=== PATIENT | female | born 1950 | race Caucasian/White ===

== ENCOUNTER → 2017-03-30 | Outpatient (CLI) | payer OTHER ==
[~2017-03-30] MED LIST: ALENDRONATE SOD70 M1 PO; AMOXICILLIN PO; CLARITIN10 MG PO; CYANOCOBAL1000 MCG/M IM; CYMBALTA PO; DARVOCET-N 1001 TAB PO; EYE DROP; FIORINAL CAPSUL1 CAP PO; FLEXERIL10 MG PO; FLONASE16 GM; GLIMEPIRIDE2 MG PO; HYDROCODON-ACE1 EAC5 PO; IBUPROFEN800 MG; KCL PO; LISINOPRIL10 MG PO; METFORMIN HCL500 M1; METFORMIN HCL500 M1 PO; NEURONTIN800 MG PO; NEXIUM PO; NORCO 7.5-3251 EACH; PAROXETINE HCL20 M1 PO; PREDNISONE PO; PRINIVIL10 MG; TIMOPTIC 0.5% OP5 M1 OD; TORADOL10 MG PO; TRAMADOL HCL50 M2; VOLTAREN75 MG PO; XARELTO10 MG PO; ZYRTEC PO; [UNRECOGNIZED DRUG - OTHER]
--- NOTE | ~2017-03-30 | HM ---
Unit #: [id number] #: [id number] Patient: ADA GOODWIN [id number] [address] [address] [id number] O MR#: [id number] NAME: ADA GOODWIN : 1950 SEX: F STUDY DATE/TIME: 03/30/2017 UNIT: CE ROOM: STUDY DESCRIPTION: Attending Physician: Juancarlos Jimenez M.D. Referring Physician: Juancarlos Jimenez M.D. Primary Care Physician: Juancarlos Jimenez M.D. CARDIOLOGY REPORT EXAM 24-hour Holter monitor. DATE APPLIED 03/30/2017 DATE SCANNED 04/02/2017 READ BY [facility] [place]. ORDERED BY Juancarlos Jimenez M.D. REASON FOR STUDY Sinus tachycardia. FINDINGS Underlying rhythm is sinus rhythm with an average heart rate of 97 beats per minute, minimum heart rate of 69 beats per minute and a maximum heart rate of 134 beats per minute. The minimum heart rate of 69 beats per minute is noted at 3:37 p.m. The maximum heart rate of 134 beats per minute is noted at 11:12 a.m. The patient had a 1.07 second pause noted at 3:50 a.m. Patient had 251 single multifocal premature ventricular complex and 117 single premature atrial complex noted. Patient had one atrial couplet noted. Patient did not record any symptoms. CONCLUSION 1. Underlying rhythm is normal sinus rhythm with an average heart rate of 97 beats per minute, minimum heart rate of 69 beats per minute, and a maximum heart rate of 134 beats per minute. 2. No sustained atrial or ventricular arrhythmias noted. 3. No significant pauses noted. 4. Patient had occasional single multifocal premature ventricular complex and occasional single premature atrial complex noted. 5. It must be noted that the patient's average heart rate in the 24 hours was elevated at 97 beats per minute. 6. Patient did not record any symptoms. Unit #: [id number] #: [id number] Patient: ADA GOODWIN Dictated by..Rafiq Garcia TD: 04/02/2017 11:48 JOB #: [id number] CARDIOLOGY REPORT Page 1 of 1 X Keshia Simpson MD <ELECTRONICALLY SIGNED> 06/13/17 1429 HOLTER MONITOR REPORT
== END | disposition home or self-care (01) ==
LOC: CEKG 09:30
DX: R00.0 Tachycardia, unspecified (principal)
CPT/HCPCS: 93225; 93226

== ENCOUNTER → 2017-05-06 | Day surgery (SDC) | payer OTHER ==
--- NOTE | ~2017-05-06 | OR ---
Unit #: [id number] #: [id number] Patient: ADA GOODWIN [id number] [address] [address] [id number] O MR#: [id number] NAME: ADA GOODWIN ROOM: Date of Procedure: 05/06/2017 Admission Date: 05/06/2017 Surgeon: Tyler Brown M.D. : 1950 Attending Physician: Tyler Brown M.D. Primary Care Physician: Myles Jimenez M.D. OPERATIVE REPORT JOB NOTE: CC: DR. MYLES JIMENEZ PREOPERATIVE DIAGNOSES Dyspepsia and hematochezia. PROCEDURES PERFORMED Upper gastrointestinal endoscopy and biopsy as well as colonoscopy with polypectomy. POSTOPERATIVE DIAGNOSES For upper endoscopy: 1. Completely normal examination up to third part of the duodenum. Biopsies obtained from the antrum for CLOtest. For colonoscopy: 1. The patient had mild sigmoid and descending colon diverticulosis. 2. There were small internal hemorrhoids, which were felt to be not large enough to require band ligation. 3. Single sessile polyp in the cecum. This was about a centimeter in size and was removed using snare cautery polypectomy. 4. Rest of the examination up to cecum was normal. The quality of the prep was good. RECOMMENDATIONS The patient will continue on Nexium 40 mg p.o. daily. She will be followed up in the office in 8 to 10 weeks' time. The results of polyp histology will be communicated to the patient. SEDATION USED MAC. DESCRIPTION OF PROCEDURE Following detailed explanation of potential risks and complications of an upper endoscopy and a colonoscopy, namely perforation, bleeding, and complications related to sedation, the patient was brought to GI lab and laid in the left lateral decubitus position. Lubricated tip of the Olympus video upper endoscope was passed through the bite block into the proximal esophagus under direct vision. The entire esophageal mucosa was examined and appeared normal. Z-line was nicely demarcated, there being no esophagitis or hiatus hernia. The scope was then advanced into the gastric cavity and the latter was insufflated. Mucosa of the fundus, body, and antrum examined and appeared unremarkable. Pylorus was intubated with visualization of the normal duodenal bulb and second and Unit #: [id number] #: [id number] Patient: ADA GOODWIN third part of the duodenum. Upon withdrawal and retroflexion, incisura, cardia, and greater curve examined and no additional findings noted. A biopsy obtained from the antrum for CLOtest. The scope was then withdrawn in the distal esophagus. Entire esophageal mucosa was examined all the way up to pharynx. No additional findings noted. The examination table was then turned by 180 degrees and the patient positioned for a colonoscopy. A digital rectal examination was performed, which was normal. Lubricated tip of the Olympus video colonoscope was inserted through the anus and advanced under direct vision. The scope was advanced and passed up to sigmoid into descending colon. Multiple small to medium-sized diverticula were noted in this area. The scope tip was then navigated all the way up to cecum with visualization of the ileocecal valve and the appendiceal orifice. Preparation was good with good visualization and photodocumentation was obtained. Last several inches of the terminal ileum also visualized after intubation of the ileocecal valve and appeared normal. Successive segments of the colonic mucosa were examined upon withdrawal. A 1 cm sessile polyp was noted in the cecum. This was removed using snare cautery polypectomy. The polyp was retrieved and sent for histology. No additional polyps were noted. The patient had scant diverticula seen in the left colon as seen earlier. In addition, a small internal hemorrhoids also noted at the anal verge. The patient also had external skin tags in the anterior aspect of the anal orifice in continuation with the perineum. The scope was then withdrawn. The patient returned to the recovery area. She tolerated the procedure without any postprocedure complications. Dictated by... Rafiq Ovalle/keith TD: 05/06/2017 23:37 JOB #: [id number] CC: Linette Torre M.D. OPERATIVE REPORT Page 1 of 1 X Tyler Brown MD X PROCEDURE OPERATIVE NOTE
== END | disposition home or self-care (01) ==
LOC: COPS 09:49
DX: D12.0 Benign neoplasm of cecum (principal); R10.13 Epigastric pain; K57.30 Diverticulosis of large intestine without perforation or abscess without bleeding; K64.8 Other hemorrhoids; E11.9 Type 2 diabetes mellitus without complications; I10 Essential (primary) hypertension; K21.9 Gastro-esophageal reflux disease without esophagitis; F17.210 Nicotine dependence, cigarettes, uncomplicated; Z88.2 Allergy status to sulfonamides; Z88.1 Allergy status to other antibiotic agents; Z79.01 Long term (current) use of anticoagulants; Z79.84 Long term (current) use of oral hypoglycemic drugs; Z79.891 Long term (current) use of opiate analgesic; Z79.899 Other long term (current) drug therapy; Z90.49 Acquired absence of other specified parts of digestive tract; Z98.890 Other specified postprocedural states
CPT/HCPCS: 82947; 87077; 88305; J2250

== ENCOUNTER → 2017-05-22 | Outpatient (CLI) | payer OTHER ==
--- NOTE | ~2017-05-22 | US85 ---
[facility] A Service of [facility] RADIOLOGY TEXT RESULTS PATIENT: ADA GOODWIN LOCATION: [facility] : [birth year] UNIT #: [id number] AGE: [address]: MYLES JIMENEZ MD (INT MED) SEX: F ORDER DR: [id number] [address] [address] [id number] O MR#: [id number] Acc #: [id number] NAME: ADA GOODWIN : 1950 SEX: F STUDY DATE/TIME: 05/22/2017 9:14 UNIT: [facility] ROOM: STUDY DESCRIPTION: [facility] Attending Physician: Myles Jimenez M.D. Referring Physician: Myles Jimenez M.D. Ordering Physician: [facility]les [employer] Managerbryce Jimenez Primary Care Physician: Myles Jimenez M.D. MEDICAL IMAGING REPORT This report is preliminary unless electronic signature is present. EXAM Right lower extremity venous duplex, 05/22/2017. HISTORY Right lower extremity edema and pain for 2 weeks with history of previous DVT October 2016. Evaluate for deep vein thrombosis. TECHNIQUE Venous ultrasound examination of the right lower extremity was performed using grayscale, spectral Doppler and color flow Doppler imaging. FINDINGS The examination is negative. There is no evidence of right lower extremity deep venous thrombus from the groin to the lower calf. Visualized greater saphenous vein is also patent. IMPRESSION Negative examination. No evidence of right lower extremity deep venous thrombosis. Dictated by... Rafiq Gibson M.D. THIS IS AN ELECTRONICALLY VERIFIED REPORT Rafiq Gibson M.D. at 05/22/2017 6:25 PM KRT/kitty TD: 05/22/2017 17:21 [facility] A Service [facility] RADIOLOGY TEXT RESULTS PATIENT: ADA GOODWIN LOCATION: [facility] : 54 UNIT #: [id number] AGE: [address]: MYLES JIMENEZ MD (INT MED) SEX: F ORDER DR: JOB #: [id number] MEDICAL IMAGING REPORT Page 1 of 1
== END | disposition home or self-care (01) ==
LOC: SNIV 08:28
DX: M79.89 Other specified soft tissue disorders (principal)
CPT/HCPCS: 93971

== ENCOUNTER → 2017-07-17 | Outpatient (CLI) | payer OTHER ==
--- NOTE | ~2017-07-17 | MR3 ---
[facility] A Service of [facility] RADIOLOGY TEXT RESULTS PATIENT: ADA GOODWIN LOCATION: [facility] : [birth year] UNIT #: [id number] AGE: [address]: MYLES JIMENEZ MD (INT MED) SEX: F ORDER DR: [id number] [address] [address] [id number] O MR#: [id number] Acc #: [id number] NAME: ADA GOODWIN : 1950 SEX: F STUDY DATE/TIME: 07/17/2017 12:40 UNIT: [facility] ROOM: STUDY DESCRIPTION: MR Abdomen Wo Contrast Attending Physician: Myles Jimenez M.D. Referring Physician: Myles Jimenez M.D. Ordering Physician: Myles Jimenez M.D. Primary Care Physician: Myles Jimenez M.D. MRI CENTER REPORT This report is preliminary unless electronic signature is present. EXAMINATION MRI abdomen without contrast. DATE 07/17/2017 HISTORY Evaluate bilateral adrenal glands. Evaluate for adrenal adenoma. COMPARISON CT of the lumbar spine, 06/23/2017, and CT of the abdomen and pelvis with contrast, 11/18/2016. PROCEDURE Multiplanar, multisequence imaging was obtained of the abdomen without contrast with attention to the adrenal glands. FINDINGS Bilateral adrenal nodules measuring 1.9 cm on the right, 2.0 cm on the left, each demonstrate marked drop of signal and [id number]-[id number] imaging in keeping with benign adrenal adenomas. These appear unchanged when compared to the 11/18/2016 exam. The noncontrast appearance of the included portions of the liver, spleen, pancreas, and kidneys are within normal limits. The gallbladder is surgically absent. There is mild dilation of the cystic duct stump which can be seen as a normal variant. Pancreatic duct caliber is normal. Incidental note is made of a cyst at the right lower renal pole measuring 1.2 cm. IMPRESSION 1. 1.9 cm right adrenal adenoma, 2.0 cm left adrenal adenoma, unchanged from 11/18/2016. [facility] A Service of [facility] RADIOLOGY TEXT RESULTS PATIENT: ADA GOODWIN LOCATION: [facility] #: [id number] : [birth year] UNIT #: [id number] AGE: [address]: MYLES JIMENEZ MD (INT MED) SEX: F ORDER DR: 2. Right renal cyst. 3. Cholecystectomy. Dictated by... Kristi Morris M.D. THIS IS AN ELECTRONICALLY VERIFIED REPORT Kristi Morris M.D. at 07/22/2017 3:27 PM SILVINO/james TD: 07/18/2017 16:55 JOB #: [id number] MRI CENTER REPORT Page 1 of 1
== END | disposition home or self-care (01) ==
LOC: SMRI 12:29
DX: D35.02 Benign neoplasm of left adrenal gland (principal); D35.01 Benign neoplasm of right adrenal gland; N28.1 Cyst of kidney, acquired; Z90.49 Acquired absence of other specified parts of digestive tract
CPT/HCPCS: 74181